=== PATIENT | male | born 1980 | race Caucasian/White ===

== ENCOUNTER 2017-12-11 12:12 | Emergency (ER) | payer OTHER ==
[2017-12-11 12:58] VITALS: BP 104/55
[2017-12-11] MEDS ORDERED: Fluorescein Sod TOPICAL 0.6* 0.6 MG TEST OPHTHALMIC ONE (13:05)
[2017-12-11] MEDS ORDERED: Tetracaine 0.5% OPTH.SOL 4 ML* 1 DROP BTL RIGHT EYE ONE (13:05)
--- NOTE | 2017-12-11 13:53 | UC ---
Filomena Esposito Emily, scribed for Flaco London MD on 12/11/17 at 1313 . Eye Complaint HPI - HPI Summary HPI Summary: In Room: This patient is a 37 year old M presenting to [facility] care with a chief complaint of dull R eye pain that began on 12/08/2017. Pt reports pain beginning upon a soda bottle cap hitting his R eye. Pt says the pain has lessened slightly since the injury. The patient rates the pain 5/10 in severity. Symptoms aggravated by nothing. Symptoms alleviated by nothing. Patient reports pruritus, photophobia, and blurred vision. Patient denies eye drainage and CP. Pt denies previous injury to R eye. MD: Vital signs stable. Afebrile. 5/10 discomfort right eye. Every day smoker. Visit history noncontributory. Nurses: Pt states he opened a soda bottle on Monday and the cap hit him in the rt eye. Pt states his rt eye continues to hurt. - History of Current Complaint Chief Complaint: UCEye Stated Complaint: EYE COMPLAINT Time Seen by Provider: 12/11/17 12:55 Hx Obtained From: Patient Onset/Duration: Sudden Onset, Lasting Days, Still Present Timing: Constant Severity Initially: Moderate Severity Currently: Moderate Pain Intensity: 5 Pain Scale Used: 0-10 Numeric Character: Dull Aggravating Factor(s): Nothing Alleviating Factor(s): Nothing Associated Signs And Symptoms: Positive: Vision Impairment Right - Allergies/Home Medications Allergies/Adverse Reactions: Allergies Allergy/AdvReac Type Severity Reaction Status Date / Time No Known Allergies Allergy Verified 12/11/17 12:58 Home Medications: Home Medications NK [No Home Medications Reported] 12/11/17 [History Confirmed 12/11/17] PMH/Surg Hx/FS Hx/Imm Hx Previously Healthy: Yes Endocrine History: Other Other Endocrine History: Negative diabetes Cardiovascular History: Other Other Cardiovascular History: Negative HTN - Surgical History Surgical History: None - Family History Known Family History: Positive: Hypertension, Other - Pancreatic CA - Social History Occupation: Employed Full-time Lives: Alone Alcohol Use: Weekly Substance Use Type: None Smoking Status (MU): Light Every Day Tobacco Smoker Type: Cigarettes Review of Systems Eyes: Blurred Vision, Drainage, Photophobia, Other - Positive R eye pain and pruritic R eye Cardiovascular: Other - Negative CP All Other Systems Reviewed And Are Negative: Yes Physical Exam - Summary Physical Exam Summary: Appearance: The patient is well-appearing, is in no pain distress, and is well- nourished. Eyes: PUPILS ARE REACTIVE TO LIGHT AND ADJUSTMENT. DIFFUSE SCLERAL INJECTION WITH SOME CRUSTING ON THE LOWER LID. THE RIGHT PUPIL APPEARS IRREGULAR COMPARED TO THE LEFT, IT IS SLIGHTLY LARGER AND NOT A PERFECT SYCUAN. ENT: The hearing is grossly normal, the pharynx is normal, and the TMs are normal. There is no muffled or hoarse voice. Neck: The neck is supple and there is no lymphadenopathy. Respiratory: The chest is nontender. The lungs are clear, there are normal breath sounds, and there is no respiratory distress. Cardiovascular: Heart is regular rate and rhythm. There is no murmur. Abdomen: The abdomen is soft and nontender. There is no organomegaly. Bowel sounds: present Musculoskeletal: Strength is intact. The patient moves all extremities. Neurological: The patient is alert. CRANIAL NERVES II THROUGH XII INTACT Psychological: The patient displays age appropriate behavior Skin: Negative for rashes. Triage Information Reviewed: Yes Vital Signs: Initial Vital Signs Temp 98.2 F 12/11/17 12:55 Pulse 70 12/11/17 12:55 Resp 18 12/11/17 12:55 BP 104/55 12/11/17 12:55 Pulse Ox 99 12/11/17 12:55 Vital Signs Reviewed: Yes Eye Complaint Course/Dx - Course Course Of Treatment: Pt has a two day history of blurred vision, discomfort, and red right eye after being hit by a bottle cap at home. Examination shows injected sclera, no corneal abrasion. The R pupil is irregular and large than the left, but it is reactive to direct light and to light in the L eye. There is crusting on the lower eye lid. The pt is wearing an eye patch because of discomfort with light. Normal BP reading and no follow-up instructions required. Medications have been included in the original chart and reviewed. - Differential Dx/Diagnosis Differential Diagnosis/HQI/PQRI: Penetrating Injury, Other - anisocoria; traumatic mydriasis, conjunctivitis, blunt trauma Provider Diagnoses: traumatic mydriasis, right eye; right eye injection; possible conjunctivitis Discharge - Sign-Out/Discharge Documenting (check all that apply): Discharge/Admit/Transfer - Discharge Plan Condition: Stable Disposition: HOME Patient Education Materials: Black Eye (ED) Forms: *Gen. Provider Communication Referrals: Emely Yoder MD [Primary Care Provider] - Additional Instructions: PLEASE SEEK CARE AT THE EMERGENCY DEPARTMENT IF SYMPTOMS WORSEN OR IF NEW SYMPTOMS DEVELOP. FOLLOW UP WITH PRIMARY CARE PHYSICIAN. WE DISCUSSED: 1. Your blurred vision and irregular pupil is related to the blunt trauma to your eye. Your pupils are not the same size or shape. 2. Follow up with ophthalmology, DR. TOTH, chandler. - Billing Disposition and Condition Condition: STABLE Disposition: HOME The documentation as recorded by the Filomena beck Emily accurately reflects the service I personally performed and the decisions made by me, Flaco London MD.
== END 2017-12-11 13:50 | disposition home or self-care (01) ==
LOC: UCEAST 12:12
DX: H57.04 Mydriasis (principal); F17.210 Nicotine dependence, cigarettes, uncomplicated; W22.8XXA Striking against or struck by other objects, initial encounter; Y92.009 Unspecified place in unspecified non-institutional (private) residence as the place of occurrence of the external cause
CPT/HCPCS: 99212; A9270-GY; G0463